=== PATIENT | male | born 1960 | race Caucasian/White ===

== ENCOUNTER 2016-11-07 00:26 | Emergency (ER) | payer OTHER ==
[~2016-11-07] VITALS: Ht 175.3 cm; Wt 100.9 kg
[2016-11-07] MEDS ORDERED: MAALOX/HYOSCYAMINE/LIDOCAINE 45 ML BTL PO ONE (01:00)
[2016-11-07] MEDS ORDERED: SODIUM CHLORIDE FLUSH 10ML SYR IVF ONE (01:00)
[2016-11-07] MEDS ORDERED: SODIUM CHLORIDE 0.9% 1,000ML IVBOLUS ONE (01:00)
[2016-11-07] MEDS ORDERED: FAMOTIDINE 20 MG/2 ML IVPush ONE (01:00)
[2016-11-07] MEDS ORDERED: ONDANSETRON 2MG/ML, 2ML IVPush ONE (01:00)
[2016-11-07] MEDS ORDERED: ONDANSETRON 2MG/ML, 2ML ONE (01:02)
[2016-11-07] MEDS ORDERED: MAALOX/HYOSCYAMINE/LIDOCAINE 45 ML BTL ONE (01:02)
[2016-11-07] MEDS ORDERED: FAMOTIDINE 20 MG/2 ML ONE (01:02)
[2016-11-07 01:04] LABS: HEMATOCRIT 45.2 % (39.2-51.8); HEMOGLOBIN 15.5 g/dL (13.7-18.0); WHITE BLOOD COUNT 6.4 x10^3/uL (3.4-10)
[2016-11-07 01:12] LABS: BLOOD UREA NITROGEN 26 mg/dL (7-18)
[2016-11-07 01:16] LABS: IS PT STATUS REG ER OR PRE ER? YES
[2016-11-07] MEDS ORDERED: DOXY100T10 PO (01:21)
[2016-11-07] MEDS ORDERED: ATOR10TA PO (01:21)
[2016-11-07 02:15] VITALS: BP 140/83
== END 2016-11-07 02:24 | disposition home or self-care (01) ==
LOC: ED 00:45
DX: R07.89 Other chest pain (principal); K21.9 Gastro-esophageal reflux disease without esophagitis
CPT/HCPCS: 36415; 71020; 80048; 82040; 84484; 85025; 93005; 96361; 96374; 96375; 99285; J2405; J7030; S0028

== ENCOUNTER 2019-12-26 11:47 | Emergency (ER) | payer OTHER ==
[~2019-12-26] VITALS: Ht 175.3 cm; Wt 98.4 kg
[~2019-12-26 11:47] MED LIST: ATOR10TA PO; DOXY100T23 PO
[2019-12-26 11:52] VITALS: BP 167/83
== END 2019-12-26 13:57 | disposition home or self-care (01) ==
LOC: ED 13:00
DX: E11.65 Type 2 diabetes mellitus with hyperglycemia (principal); U07.1 COVID-19; K21.9 Gastro-esophageal reflux disease without esophagitis; E78.5 Hyperlipidemia, unspecified; Z91.14 Patient's other noncompliance with medication regimen
CPT/HCPCS: 71045; 93005; 99283